=== PATIENT | male | born 1990 | race Two or more races ===

== ENCOUNTER 2018-07-30 16:09 | Emergency (ER) | payer SELFPAY ==
[~2018-07-30] VITALS: Ht 165.1 cm; Wt 113.4 kg
[2018-07-30 16:25] VITALS: BP 137/85
[2018-07-30] MEDS ORDERED: diphenhdrAMINE HCL 50 MG/1 ML VL IM ONE (18:00)
== END 2018-07-30 18:18 | disposition home or self-care (01) ==
LOC: ER 16:14
DX: L23.9 Allergic contact dermatitis, unspecified cause (principal)
CPT/HCPCS: 96372; 99283; J1200